=== PATIENT | female | born 1965 ===

== ENCOUNTER 2016-07-28 07:40 | Day surgery (SDC) | payer MEDICAID ==
[2016-07-28] MEDS ORDERED: Propofol 10 mg/ml Inj (20 ML) ONE ×2 (10:29→10:44)
[2016-07-28] MEDS ORDERED: Lactated Ringer's 500 ML IV ONE ×2 (10:30)
[2016-07-28] MEDS ORDERED: Lidocaine Hydrochloride 5 ML INJ ONE (10:44)
[2016-07-28 13:25] VITALS: TEMP 97.7
[2016-07-28 13:27] VITALS: O2SAT 98
[2016-07-28 13:28] VITALS: RESP 16
[2016-07-28 13:37] VITALS: BP 116/63; PULSE 68
== END 2016-07-28 12:20 | disposition home or self-care (01) ==
LOC: C.ENDO 07:40
PROVIDERS: ATTEND Internal Medicine Gastroenterology
DX: K64.8 Other hemorrhoids (principal); K31.9 Disease of stomach and duodenum, unspecified; K25.9 Gastric ulcer, unspecified as acute or chronic, without hemorrhage or perforation; K21.9 Gastro-esophageal reflux disease without esophagitis; K59.00 Constipation, unspecified; J30.2 Other seasonal allergic rhinitis; M62.838 Other muscle spasm; Z87.19 Personal history of other diseases of the digestive system; Z98.890 Other specified postprocedural states; Z90.710 Acquired absence of both cervix and uterus; Z79.899 Other long term (current) drug therapy

== ENCOUNTER 2016-11-20 08:05 | Day surgery (SDC) | payer MEDICAID ==
[2016-11-20 08:29] VITALS: BMI 35.0
[2016-11-20] MEDS ORDERED: Propofol 10 mg/ml Inj (20 ML) ONE (10:36)
[2016-11-20] MEDS ORDERED: Lactated Ringer's 500 ML IV ONE ×2 (10:37)
[2016-11-20] MEDS ORDERED: Atropine Sulfate 0.4 mg/ml (0.8mg/2ml) Syringe IV ONE (10:39)
[2016-11-20] MEDS ORDERED: Lactated Ringer's 500 ML IV SCH (10:45)
[2016-11-20 11:00] VITALS: RESP 12
[2016-11-20 11:07] VITALS: O2SAT 100
[2016-11-20 13:01] VITALS: BP 110/61; PULSE 58; TEMP 97
== END 2016-11-20 12:59 | disposition home or self-care (01) ==
LOC: C.ENDO 08:05
PROVIDERS: ATTEND Internal Medicine
DX: K29.60 Other gastritis without bleeding (principal)
CPT/HCPCS: 43235; J2704; J7120

== ENCOUNTER 2017-02-19 07:36 | Day surgery (SDC) | payer MEDICAID ==
[2017-02-19 08:13] VITALS: BMI 33.4
--- NOTE | 2017-02-19 09:15 | CP.SDSHP ---
Same Day Surgery H & P - History Proposed Procedure: abnormal ct scan ileum. colonoscopy Pre-Op Diagnosis: abnormal ct scan ileum - Allergies Allergies: Allergies No Known Allergies Allergy (Verified 02/19/17 08:13) - Physical Exam General Appearance: nl Vital Signs: Vital Signs 02/19/17 08:02 Temperature 97.7 F Pulse Rate 62 Respiratory 16 Rate Blood Pressure 118/61 O2 Sat by Pulse 98 Oximetry Mental Status: Alert & Oriented x3 Neuro: WNL Heart: WNL Lungs: WNL GI: WNL - {Optional Preform as Required} Abdomen: WNL - Impression Impression: abnormal ct ileum. colonoscopy Pt. Evaluated Today:Candidate for Anesthesia & Procedure: Yes - Date & Time Date: 02/19/17 Time: 09:15 Short Stay Discharge - Short Stay Discharge Admitting Diagnosis/Reason for Visit: ABDOMINAL PAIN Disposition: HOME/ ROUTINE
[2017-02-19] MEDS ORDERED: Lactated Ringer's 1,000 ML IV ONE (10:48)
[2017-02-19] MEDS ORDERED: Propofol 10 mg/ml Inj (20 ML) ONE ×2 (10:59→11:03)
[2017-02-19] MEDS ORDERED: Lidocaine Hydrochloride 5 ML INJ ONE (11:04)
[2017-02-19] MEDS ORDERED: Lactated Ringer's 500 ML IV ONE (11:26)
[2017-02-19 11:42] VITALS: TEMP 97.8; O2SAT 100
[2017-02-19 11:58] VITALS: RESP 12
[2017-02-19 14:04] VITALS: BP 104/60; PULSE 55
== END 2017-02-19 12:20 | disposition home or self-care (01) ==
LOC: C.ENDO 07:36
PROVIDERS: ATTEND Internal Medicine
DX: K62.89 Other specified diseases of anus and rectum (principal); K64.8 Other hemorrhoids
CPT/HCPCS: 45380; 88305; 88313; 88342; J2704; J7120